=== PATIENT | female | born 1945 | race Caucasian/White ===

== ENCOUNTER 2017-03-23 15:42 | Emergency (ER) | payer MEDICARE, MEDICAID ==
[~2017-03-23] VITALS: Ht 160 cm; Wt 127.0 kg
[~2017-03-23 15:42] MED LIST: ALLO300T PO; FISH1CAP PO; GARL10002 PO; LISI1TAB5 PO; METF500T4 PO
[2017-03-23 16:02] VITALS: BP 166/77
--- NOTE | 2017-03-23 16:13 | PHYS DOC ---
Past Medical History Past Medical History: Diabetes-Type II, Hypertension Additional Past Medical Histor: gout, CHRONIC BACK PAIN Past Surgical History: Other Additional Past Surgical Histo: hernia repair Alcohol Use: Occasionally Drug Use: None Adult General Chief Complaint Chief Complaint: SKIN RASH/ABSCESS HPI HPI Patient is a 71 year old female with history of hypertension, diabetes type 2, who presents today with a rash on her right buttock that began 5 days ago. Patient denies any fever. Denies any previous history of shingles. Review of Systems Review of Systems Constitutional: Denies fever or chills [] Musculoskeletal: Denies back pain or joint pain [] Integument: rash Neurologic: Denies headache, focal weakness or sensory changes [] Current Medications Current Medications Current Medications Medications (Trade) Dose Ordered Sig/Kalyn Start Time Stop Time Status Last Admin Dose Admin Oxycodone/ Acetaminophen (Percocet 5/325) 2 tab 1X ONCE 03/23/17 16:15 03/23/17 16:16 Allergies Allergies Allergies Coded Allergies Type Severity Reaction Last Updated Verified No Known Drug Allergies 06/25/14 No Physical Exam Physical Exam Constitutional: Well developed, well nourished, no acute distress, non-toxic appearance. [] Skin: Mild erythema is papular rash on the right buttock following the L5 dermatome consistent with shingles. Back: No tenderness, no CVA tenderness. [] Extremities: No tenderness, no cyanosis, no clubbing, ROM intact, no edema. [] Neurologic: Alert and oriented X 3, normal motor function, normal sensory function, no focal deficits noted. [] Psychologic: Affect normal, judgement normal, mood normal. [] Current Patient Data Vital Signs Vital Signs Date Time Temp Pulse Resp B/P (MAP) Pulse Ox O2 Delivery O2 Flow Rate FiO2 03/23/17 16:02 98.4 91 18 95 Room Air 98.4 EKG EKG [] Radiology/Procedures Radiology/Procedures [] Course & Med Decision Making Course & Med Decision Making Pertinent Labs and Imaging studies reviewed. (See chart for details) Patient has shingles. She'll be discharged with acyclovir. She takes oxycodone at home but she is out of the medication. I gave 12 tablets. She has a PCP and will follow-up with the course of the week. Morris Disclaimer Morris Disclaimer This electronic medical record was generated, in whole or in part, using a voice recognition dictation system. Departure Departure Impression: Primary Impression: Shingles rash Disposition: HOME, SELF-CARE Condition: STABLE Referrals: SONIA MILNER (PCP) follow up in one week Patient Instructions: Rubi, [id number] Additional Instructions: You were seen for shingles rash. Take the prescribed medicines as ordered. Follow-up with your doctor in the next 7 days. Come back to the ED if symptoms worsen. Scripts Oxycodone/Apap 7.5-325 (PERCOCET 7.5-325 MG TABLET) 1 Each Tablet 1 TAB PO PRN Q6HRS Y for PAIN, #12 TAB 0 Refills Prov: GATITO MARSHALL APRN 03/23/17 Acyclovir (ACYCLOVIR) 800 Mg Tablet 1 TAB PO 5XDAY, #50 TAB Prov: GATITO MARSHALL APRN 03/23/17 Problem Qualifiers Primary Impression: Shingles rash Herpes zoster complications: without complications Qualified Codes: B02.9 - Zoster without complications GATITO MARSHALL APRN Mar 23, 2017 16:13
[2017-03-23] MEDS ORDERED: oxyCODONE/APAP 5/325 1 TAB TABLET PO ONE (16:15)
[2017-03-23] MEDS ORDERED: ACYC800T PO (16:19)
[2017-03-23] MEDS ORDERED: OXYC-327 PO (16:19)
== END 2017-03-23 16:25 | disposition home or self-care (01) ==
LOC: ER 15:42
DX: B02.9 Zoster without complications (principal); E11.9 Type 2 diabetes mellitus without complications; I10 Essential (primary) hypertension; M10.9 Gout, unspecified; G89.29 Other chronic pain
CPT/HCPCS: 99283

== ENCOUNTER → 2017-06-11 | Day surgery (SDC) | payer MEDICARE, MEDICAID ==
[~2017-06-11] MED LIST changes: -ALLO300T PO; -FISH1CAP PO; -GARL10002 PO; +IV RINGERS,LACTATED 1000ML 1,000 ML IV; +LIDOCAINE 2% PF Vial for OR 5 ML VIAL.; -LISI1TAB5 PO; -METF500T4 PO; +PROPOFOL 40 ML IV
== END | disposition home or self-care (01) ==
LOC: ENDOS 07:26
DX: K64.0 First degree hemorrhoids (principal); K57.30 Diverticulosis of large intestine without perforation or abscess without bleeding; M19.91 Primary osteoarthritis, unspecified site; E78.00 Pure hypercholesterolemia, unspecified; I10 Essential (primary) hypertension; E78.5 Hyperlipidemia, unspecified; Z72.89 Other problems related to lifestyle; Z98.890 Other specified postprocedural states
CPT/HCPCS: 45378; J2704

== ENCOUNTER 2017-09-18 18:45 | Emergency (ER) | payer MEDICARE, MEDICAID ==
[2017-09-18 20:30] LABS: INFLUENZA A PATIENT NEGATIVE (NEGATIVE); INFLUENZA B PATIENT NEGATIVE (NEGATIVE); OBC FLU VALID
== END 2017-09-18 21:39 | disposition home or self-care (01) ==
LOC: ER 18:45
DX: J11.1 Influenza due to unidentified influenza virus with other respiratory manifestations (principal); J40 Bronchitis, not specified as acute or chronic; I10 Essential (primary) hypertension; E11.9 Type 2 diabetes mellitus without complications; G89.29 Other chronic pain; M10.9 Gout, unspecified
CPT/HCPCS: 71046; 87804; 87804-59; 99285-25